=== PATIENT | male | born 1945 | race Caucasian/White ===

== ENCOUNTER 2020-04-20 22:17 | Emergency (ER) | payer MEDICARE, BC ==
[~2020-04-20] VITALS: Ht 182.9 cm; Wt 81.6 kg
--- NOTE | 2020-04-20 22:35 | NUR ---
pt bib friend c/o aranda cath malfunction. however on arrival, noted urine output. pt aox4 rr even and unlabored. no sob noted. no nvd at this time. no acute distress noted. dr. thompson at bedside for eval.
--- NOTE | 2020-04-20 22:52 | NUR ---
flushed 200cc per dr. thompson, pt 16fr aranda catheter flowing well.
[2020-04-20 23:21] VITALS: BP 147/68
== END 2020-04-20 23:21 | disposition home or self-care (01) ==
LOC: ER 22:23
DX: T83.091A Other mechanical complication of indwelling urethral catheter, initial encounter (principal); E11.9 Type 2 diabetes mellitus without complications